=== PATIENT | male | born 1975 | race Caucasian/White ===

== ENCOUNTER 2025-01-15 06:47 | Day surgery (SDC) | payer BC ==
[~2025-01-15 06:47] MED LIST: Sodium Chloride 0.9% 10 ML Syringe FLUSH PRN
[2025-01-15] MEDS ORDERED: Midazolam 1 MG/ML 2 ML SDV IV ONE (06:48)
[2025-01-15] MEDS ORDERED: Propofol 200 MG/20 ML SDV IV ONE (06:48)
[2025-01-15] MEDS ORDERED: fentaNYL 100 MCG/2 ML SDV IV ONE (06:48)
[2025-01-15] MEDS: Lactated Ringers 1,000 ML IV SCH (08:01)
== END 2025-01-15 09:30 | disposition home or self-care (01) ==
LOC: FB.SDS 06:47
PROVIDERS: ATTEND Surgery
DX: D12.6 Benign neoplasm of colon, unspecified (principal); K63.5 Polyp of colon; K92.1 Melena; K57.30 Diverticulosis of large intestine without perforation or abscess without bleeding; E66.01 Morbid (severe) obesity due to excess calories; Z68.41 Body mass index [BMI] 40.0-44.9, adult
CPT/HCPCS: 00811; 45381; 45384; 45385; 88305; A9270; J2250; J2704; J3010; J7120